=== PATIENT | female | born 1980 | race African-American/Black ===

== ENCOUNTER 2019-04-06 10:13 | Emergency (ER) | payer SELFPAY ==
--- NOTE | 2019-04-06 10:35 | ER Document Report ---
ED Medical Screen (RME) - General Chief Complaint: Blood Pressure Problem Stated Complaint: HEADACHE,BLOOD PRESSURE ISSUES Time Seen by Provider: 04/06/19 10:31 Mode of Arrival: Ambulatory Information source: Patient Notes: 39-year-old female presents to ED for complaint of chest pain, headache, and high blood pressure. She states she has had the chest pain for 2 days, headache for the last 3 days and elevated blood pressure for a week. She states she does have a history of high blood pressure. States she just moved to the area and cannot get insurance to the first of the year so she is put off coming in here until it became worse now she is here. She states she was on hydrochlorothiazide 25 mg with lisinopril 20 mg. She states she is never been tested for any kind of cardiac pain but she has had cardiac pain in the past. I have greeted and performed a rapid initial assessment of this patient. A comprehensive ED assessment and evaluation of the patient, analysis of test results and completion of medical decision making process will be conducted by an additional ED providers. Physical Exam - Vital signs Vitals: Temp Pulse Resp BP Pulse Ox 98.0 F 105 H 18 151/95 H 93 04/06/19 10:18 04/06/19 10:18 04/06/19 10:18 04/06/19 10:18 04/06/19 10:18 Course - Vital Signs Vital signs: Temp Pulse Resp BP Pulse Ox 98.0 F 105 H 18 151/95 H 93 04/06/19 10:18 04/06/19 10:18 04/06/19 10:18 04/06/19 10:18 04/06/19 10:18
[2019-04-06] MEDS ORDERED: ASPIRIN 81 MG TABLET, CHEWABLE PO ONE (10:36)
[2019-04-06 11:16] LABS: ABSOLUTE EOSINOPHILS # (AUTO) 0.1 10^3/uL (0.0-0.6); ABSOLUTE LYMPHOCYTES (AUTO) 2.1 10^3/uL (0.5-4.7); ABSOLUTE MONOCYTES (AUTO) 0.6 10^3/uL (0.1-1.4); ABSOLUTE NEUT (AUTO) 4.5 10^3/uL (1.7-8.2); BASOPHILS % (AUTO) 0.7 % (0-2); EOSINOPHILS % (AUTO) 1.7 % (0-6); HEMATOCRIT 33.4 % (36.0-47.0); HEMOGLOBIN 10.5 g/dL (12.0-15.5); LYMPHOCYTES % (AUTO) 28.5 % (13-45); MEAN CORPUSCULAR HEMOGLOBIN 18.2 pg (27.0-33.4); MEAN CORPUSCULAR HGB CONC 31.3 g/dL (32.0-36.0); PLATELET COUNT 406 10^3/uL (150-450); RED BLOOD COUNT 5.74 10^6/uL (3.72-5.28); RED CELL DISTRIBUTION WIDTH 19.8 % (11.5-14.0); SEGMENTED NEUTROPHILS % (AUTO) 61.1 % (42-78); TOTAL CELLS COUNTED % (AUTO) 100 %; WHITE BLOOD COUNT 7.3 10^3/uL (4.0-10.5)
[2019-04-06 11:18] LABS: APPEARANCE,URINE CLEAR; BILIRUBIN,URINE NEGATIVE (NEGATIVE); COLOR,URINE STRAW; GLUCOSE, URINE NEGATIVE (NEGATIVE); KETONES,URINE NEGATIVE (NEGATIVE); PROTEIN,URINE NEGATIVE (NEGATIVE); URINE SPECIFIC GRAVITY 1.011; UROBILINOGEN,URINE NEGATIVE mg/dL (<2.0)
[2019-04-06 11:27] LABS: MEAN CORPUSCULAR VOLUME 58 fl (80-97)
--- NOTE | 2019-04-06 11:32 | RADIOLOGY REPORT (SQ) ---
EXAM DESCRIPTION: CHEST 2 VIEWS COMPLETED DATE/TIME: 04/06/2019 11:08 am REASON FOR STUDY: chest pain COMPARISON: None. EXAM PARAMETERS: NUMBER OF VIEWS: two views TECHNIQUE: Digital Frontal and Lateral radiographic views of the chest acquired. RADIATION DOSE: NA LIMITATIONS: none FINDINGS: LUNGS AND PLEURA: No opacities, masses or pneumothorax. No pleural effusion. MEDIASTINUM AND HILAR STRUCTURES: No masses or contour abnormalities. HEART AND VASCULAR STRUCTURES: Heart normal size. No evidence for failure. BONES: No acute findings. Thoracic scoliosis. HARDWARE: None in the chest. OTHER: No other significant finding. IMPRESSION: NO ACUTE RADIOGRAPHIC FINDING IN THE CHEST. TECHNICAL DOCUMENTATION: JOB ID: [id number] [employer]- All Rights Reserved Reading location - IP/workstation name: [email or web address]
[2019-04-06 11:37] LABS: ALBUMIN 4.5 g/dL (3.5-5.0); ALKALINE PHOSPHATASE 64 U/L (38-126); ANION GAP 10 (5-19); ASPARTATE AMINO TRANSFERASE 19 U/L (14-36); BILIRUBIN,DIRECT 0.1 mg/dL (0.0-0.4); BILIRUBIN,TOTAL 0.3 mg/dL (0.2-1.3); BLOOD UREA NITROGEN 15 mg/dL (7-20); CALCIUM 9.9 mg/dL (8.4-10.2); CARBON DIOXIDE 29 mmol/L (22-30); CHLORIDE 100 mmol/L (98-107); GLUCOSE 95 mg/dL (75-110); POTASSIUM 3.8 mmol/L (3.6-5.0)
[2019-04-06 11:47] LABS: ANISOCYTOSIS 2+; HYPOCHROMASIA 1+
[2019-04-06 11:48] LABS: POLYCHROMASIA SLIGHT
[2019-04-06 11:49] LABS: PLATELET COMMENT ADEQUATE; TARGET CELLS SLIGHT
--- NOTE | 2019-04-06 16:07 | ER Document Report ---
ED General - General Chief Complaint: High Blood Pressure Stated Complaint: HEADACHE,BLOOD PRESSURE ISSUES Time Seen by Provider: 04/06/19 10:31 Primary Care Provider: ÓSCAR CORTEZ MD [ACTIVE STAFF] - Follow up in 1 week EUFEMIA WATERS MD [COMMUNITY BASED STAFF] - Follow up as needed Mode of Arrival: Ambulatory Notes: 39-year-old female with past medical history of hypertension presents with chest pain, headache, elevated blood pressure. Patient states she has been having some right-sided chest pain for the past 2 days and it is worse in the morning. Patient states she believes this is from falling asleep on her chest. Patient is also complaining of headache for the past 3 days. Patient is also complaining of elevated blood pressure for the past week. Patient states that she has a history of hypertension and was on HCTZ/lisinopril 25-20 mg however patient stopped taking this in November. Patient denies any shortness of breath, nausea, vomiting, visual changes, abdominal pain, fever. Patient also denies any recent long distance travel, recent hospitalizations, recent surgeries, control use, personal history of cancer, history of PE or DVT. Patient also denies any family history of any cardiac disease. TRAVEL OUTSIDE OF THE [place] IN LAST 30 DAYS: No - Related Data Allergies/Adverse Reactions: No Known Allergies Allergy (Unverified 04/06/19 15:45) Past Medical History - General Information source: Patient - Social History Smoking Status: Current Some Day Smoker Family History: None Patient has suicidal ideation: No Patient has homicidal ideation: No - Past Medical History Cardiac Medical History: Reports: Hx Hypertension Past Surgical History: Reports: Hx Section - x2 Review of Systems - Review of Systems Notes: Constitutional: Negative for fever. HENT: Negative for sore throat. Eyes: Negative for visual changes. Cardiovascular: Positive for chest pain. Respiratory: Negative for shortness of breath. Gastrointestinal: Negative for abdominal pain, vomiting or diarrhea. Genitourinary: Negative for dysuria. Musculoskeletal: Negative for back pain. Skin: Negative for rash. Neurological: Positive for headaches. Negative for weakness or numbness. 10 point ROS negative except as marked above and in HPI. Physical Exam - Vital signs Vitals: Temp Pulse Resp BP Pulse Ox 98.0 F 105 H 18 151/95 H 93 04/06/19 10:18 04/06/19 10:18 04/06/19 10:18 04/06/19 10:18 04/06/19 10:18 - Notes Notes: GENERAL: Well-appearing, well-nourished and in no acute distress. HEAD: Atraumatic, normocephalic. EYES: Extraocular movements intact, sclera anicteric, conjunctiva are normal. NECK: Normal range of motion, supple without lymphadenopathy or JVD. LUNGS: Breath sounds clear to auscultation bilaterally and equal. No wheezes rales or rhonchi. HEART: Regular rate and rhythm without murmurs, rubs or gallops. EXTREMITIES: Normal range of motion, no pitting or edema. No clubbing or cyanosis. NEUROLOGICAL: Cranial nerves II through XII grossly intact. Normal speech, normal gait. PSYCH: Normal mood, normal affect. SKIN: Warm, Dry, normal turgor, no rashes or lesions noted. Course - Re-evaluation Re-evalutation: 04/06/19 39-year-old female with past medical history of hypertension presents with chest pain, headache, hypertension. Presentation of chest pain in an other rhoades well appearing patient. Low clinical suspicion for ACS given clinical history, exam, EKG without ST elevations or depressions, and negative initial troponin. HEART score 1. PE clinically unlikely. Patient is low risk by Well's criteria. Clinically excluded by PERC due to age < 50, absence of tachycardia, hypoxia, previous VTE, recent trauma or surgery, hemoptysis, exogenous estrogen, or unilateral leg swelling. CXR without evidence of pneumothorax or pneumonia. No widened mediastinum. Aortic dissection also seems unlikely given history, symmetric pulses, CXR, and vitals. HEART Score: 1 Chest pain in a patient without evidence of cardiac or other serious etiology on workup today. I discussed with patient that, based on their age, risk factors and emergency department testing today, the likelihood that their symptoms are related to a heart attack is very low (estimated risk of heart attack or over the next 30 days of less than 1%). The patient demonstrates decision makin g capacity and has verbalized an understanding of these risks to me. Based on this, the patient has chosen to follow-up as an outpatient. Usual chest pain return precautions reviewed. The patient states understanding and agreement with this plan. - Vital Signs Vital signs: Temp Pulse Resp BP Pulse Ox 98.0 F 105 H 13 167/122 H 100 04/06/19 10:18 04/06/19 10:18 04/06/19 15:00 04/06/19 14:31 04/06/19 15:00 - Laboratory Result Diagrams: 04/06/19 11:00 04/06/19 11:00 Laboratory results interpreted by me: 04/06/19 11:00 RBC 5.74 H Hgb 10.5 L Hct 33.4 L MCV 58 L MCH 18.2 L MCHC 31.3 L RDW 19.8 H Discharge - Discharge Clinical Impression: Chest pain Qualifiers: Chest pain type: unspecified Qualified Code(s): R07.9 - Chest pain, unspecified Hypertension Qualifiers: Hypertension type: unspecified Qualified Code(s): I10 - Essential (primary) hypertension Condition: Stable Disposition: HOME, SELF-CARE Instructions: High Blood Pressure ([facility]) Additional Instructions: You were seen today for chest pain. The exact cause of your pain is unclear. However, based on your cardiac enzyme testing, chest x-ray, and EKG it does not appear that it is from an immediately life-threatening cause at this time. Although your testing here is normal is critical that you follow-up with your primary care physician for continued evaluation of this chest pain and possible stress testing. I recommended you see your physician within the next 24-48 hours to be evaluated for consideration of a stress test. Please return to emergency department immediately if you have worsening of your chest pain, shortness of breath, vomiting, become unable to exert yourself due to pain or difficulty breathing, you pass out, or have any pain that radiates into your arms, jaw, or back. Please also return if you have any additional symptoms that are concerning to you. Prescriptions: Lisinopril/Hydrochlorothiazide [Lisinopril-Hctz 20-25 mg Tab] 1 each PO DAILY #30 tablet Referrals: ÓSCAR CORTEZ MD [ACTIVE STAFF] - Follow up in 1 week EUFEMIA WATERS MD [COMMUNITY BASED STAFF] - Follow up as needed
[2019-04-06 16:11] VITALS: BP 167/123
--- NOTE | 2019-04-06 23:42 | EKG REPORT ---
SEVERITY:- BORDERLINE ECG - SINUS RHYTHM PROBABLE LEFT ATRIAL ABNORMALITY BORDERLINE LEFT AXIS DEVIATION BORDERLINE T ABNORMALITIES, ANT-LAT LEADS : Confirmed by: Audelia Rosa 06-Apr-2019 23:42:22
[2019-04-07 13:36] LABS: PATH REVIEW PATHOLOGIST REVIEWED
== END 2019-04-06 16:16 | disposition home or self-care (01) ==
LOC: ER 10:13
DX: I10 Essential (primary) hypertension (principal); R07.9 Chest pain, unspecified; R51 Headache; F17.200 Nicotine dependence, unspecified, uncomplicated
CPT/HCPCS: 36415; 71046; 80053; 81001; 83690; 84484; 84703; 85025; 93005; 93010; 99284